=== PATIENT | male | born 1990 | race African-American/Black ===

== ENCOUNTER 2019-05-04 22:37 | Emergency (ER) | payer MEDICAID ==
[~2019-05-04] VITALS: Ht 170.2 cm; Wt 72.6 kg
[2019-05-04 22:55] VITALS: BP 137/88
== END 2019-05-05 03:29 | disposition left against medical advice (07) ==
LOC: ER 22:43
DX: R07.89 Other chest pain (principal); Z53.21 Procedure and treatment not carried out due to patient leaving prior to being seen by health care provider